=== PATIENT | male | born 2000 | race Caucasian/White ===

== ENCOUNTER 2024-08-28 19:49 | Emergency (ER) | payer BC ==
[2024-08-28 20:06] VITALS: TEMP 98.1; O2SAT 98
--- NOTE | 2024-08-28 21:09 | ERPHSYRPT ---
- History of Present Illness Source: patient Patient Subjective Stated Complaint: "I felt like I was about to pass out and next thing I know I woke up on the ground. My family thought I was shaking." Triage Nursing Assessment: Pt presents to ER with complaints of syncopal episode / possible seizure that occurred just [employer]. Pt arrived by EMS who state that pt went down to the ground and family on scene thought he may have been shaking or seizing. When EMS arrived pt was alert and oriented x 3. Rescue performed FSBS check and BGL was in the 60s, pt ate some food and EMS FSBS was in the 90s. Pt is alert and oriented x 3 upon ER arrival. Pt is awake and answering all questions appropriately. Denies loss of bladder or bowels. Pt remembers feeling as if he was going to "pass out" and then woke up on the ground. LOC was very brief. Pt skin is pink, warm, and dry. Respirations are easy. Pupils are PERRL. Denies any pain or injury. Physician History: Patient is brought in by EMS. He had a syncopal episode. He is had about 5 of them in his life. The last was 2 to 3 years ago. He was just sitting had a play and felt lightheaded and tingly he was out for about a minute. He was not postictal when he came to. There was some mild tremors whenever he was down. H e got a little bit sweaty and nauseous said his head felt hot. He is back to normal now. He was diagnosed with seizures in the past he says that they all feel like this and that he feels lightheaded before each 1. I do not think that he is having seizures. He is never been on any seizure medication. He did not have any palpitations chest pain shortness of breath or other neurological deficits or issues. Witnessed: unwitnessed Prior Episodes: multiple episodes today Allergies/Adverse Reactions: No Known Drug Allergies Allergy (Verified 08/28/24 20:09) Home Medications: No Reportable Medications [No Reported Medications] 08/28/24 [History] Hx Tetanus, Diphtheria Vaccination/Date Given: No Hx Influenza Vaccination/Date Given: No Hx Pneumococcal Vaccination/Date Given: No Immunizations Up to Date: No Travel Risk - International Travel Have you traveled outside of the country in past 3 weeks: No - Emerging Infectious Disease Are you exhibiting symptoms associated with any current EIDs: No - Past Medical History Pertinent Past Medical History: Yes Neurological History: Other ENT History: No Pertinent History Cardiac History: No Pertinent History Respiratory History: No Pertinent History Endocrine Medical History: No Pertinent History Musculoskeletal History: No Pertinent History GI Medical History: No Pertinent History History: No Pertinent History Psycho-Social History: No Pertinent History Male Reproductive Disorders: No Pertinent History Other Medical History: possible syncope vs seizures (2019 + 2024) - Past Surgical History Past Surgical History: No Neuro Surgical History: No Pertinent History Cardiac: No Pertinent History Respiratory: No Pertinent History Gastrointestinal: No Pertinent History Genitourinary: No Pertinent History Musculoskeletal: No Pertinent History Male Surgical History: No Pertinent History - Social History Smoking Status: Never smoker Exposure to second hand smoke: No Drug Use: none - Social Determinants of Health Will the patient participate in the screening: Yes Do you worry about a steady place to live?: No Do you have any problems with any of the following?: No known problems In the past 12 months,have you had to go without utilities?: No Transportation Issues: No Has anyone in your support network made you feel unsafe?: No Have you or anyone in your house had to go w/o enough food: No - Review of Systems Constitutional: No Symptoms Eyes: No Symptoms Respiratory: No Symptoms Cardiac: No Symptoms Neurological: No Symptoms All Other Systems: Reviewed and Negative Physical Exam - Nursing Vital Signs Nursing Vital Signs: Initial Vital Signs Temperature 98.1 F 08/28/24 19:50 Pulse Rate 95 H 08/28/24 19:50 Respiratory Rate 16 08/28/24 19:50 Blood Pressure 161/89 08/28/24 19:50 O2 Sat by Pulse Oximetry 98 08/28/24 19:50 Pain Scale Pain Intensity 0 - [place] Coma Scale Best Eye Response (Jero): (4) open spontaneously Best Verbal Response ([place]): (5) oriented Best Motor Response ([place]): (6) obeys commands Jero Total: 15 - Physical Exam General Appearance: no apparent distress Eye Exam: bilateral eye: normal inspection, PERRL, EOMI, abnormal EOM Ears, Nose, Throat Exam: normal ENT inspection Neck Exam: normal inspection Respiratory: normal breath sounds Cardiovascular: regular rate/rhythm, normal heart sounds 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, 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 Exam: normal hearing, normal speech, PERRL Coordination/Gait: normal finger to nose, normal gait Motor/Sensory: no motor deficit, no sensory deficit Skin Exam: normal color SpO2: 98 - Course EKG Interpreted by Me: RATE, NORMAL AXIS, NORMAL INTERVALS, NORMAL QRS Ordered Tests: Active Orders 24 hr Category Date Time Status EKG-ER Only STAT Care 08/28/24 20:39 Active CBC W DIFF Stat Lab 08/28/24 21:20 Completed CMP Stat Lab 08/28/24 21:20 Completed Lab/Rad Data: Laboratory Result Diagrams 08/28/24 21:20 08/28/24 21:20 Laboratory Results 08/28/24 08/28/24 Range/Units 21:20 21:20 WBC 13.2 H (4.23-9.07) x10^3/uL RBC 5.31 (4.63-6.08) x10^6/uL Hgb 15.7 (13.7-17.5) g/dL Hct 48.5 (40.1-51.0) % MCV 91.3 (79.0-92.2) fL MCH 29.6 (25.7-32.2) pg MCHC 32.4 (32.3-36.5) g/dL RDW 13.0 (11.6-14.4) % Plt Count 222 (163-337) x10^3/uL MPV 11.2 (9.4-12.4) fL Gran % 87.4 H (34.0-67.9) % Immature Gran % (Auto) 0.3 (0.001-0.429) % Nucleat RBC Rel Count 0.0 (0.00-0.2) % Eos # (Auto) 0.01 L (0.04-0.54) x10^3/uL Immature Gran # (Auto) 0.04 H (0.001-0.031) x10^3u/L Absolute Lymphs (auto) 0.89 L (1.32-3.57) x10^3/uL Absolute Monos (auto) 0.68 (0.30-0.82) x10^3/uL Absolute Nucleated RBC 0.00 (0.00-0.012) x10^3u/L Lymphocytes % 6.8 L (21.8-53.1) % Monocytes % 5.2 L (5.3-12.2) % Eosinophils % 0.1 L (0.8-7.0) % Basophils % 0.2 (0.2-1.2) % Absolute Granulocytes 11.51 H (1.78-5.38) x10^3/uL Basophils # 0.03 (0.01-0.08) x10^3/uL Sodium 142 (135-145) mmol/L Potassium 4.4 (3.5-5.1) mmol/L Chloride 103 (98-107) mmol/L Carbon Dioxide 27 (22-30) mmol/L Anion Gap 16.7 H (5-15) MEQ/L BUN 11 (9-20) mg/dL Creatinine 0.67 (0.66-1.25) mg/dL Estimated GFR 135.4 ML/MIN Glucose 117 H (74-106) mg/dL Calcium 9.0 (8.4-10.2) mg/dL Total Bilirubin 1.00 (0.2-1.3) mg/dL AST 27 (17-59) U/L ALT 21 (0-50) U/L Alkaline Phosphatase 90 (38-126) U/L Serum Total Protein 7.8 (6.3-8.2) g/dL Albumin 4.9 (3.5-5.0) g/dL - Progress Progress Note: Patient stable throughout stay. I think that he needs to have this evaluated by his primary doctor on an outpatient basis. His EKG showed no acute changes is interpreted by me. His electrolytes and labs all look normal.I advised him not to drive 08/28/24 21:12 08/28/24 21:13 Medical Desision Making - Independent Historian Additional History obtained from: Spouse - Diagnostic Testing Diagnostic test were ordered, analyzed, and reviewed by me: Yes - Risk of complications Minimal Risk: Minimal risk of morbidity - Departure Departure Disposition: Home Clinical Impression: Syncope Qualifiers: Syncope type: vasovagal syncope Qualified Code(s): R55 - Syncope and collapse Condition: Stable Critical Care Time: No Referrals: DOCTOR,NO FAMILY [Primary Care Provider] - Follow up/PCP as directed Instructions: Syncope (Fainting) (DC)
[2024-08-28 21:27] LABS: Absolute Neutrophil Ct (ANC) 11.51 x10^3/uL (1.78-5.38); BASOPHIL % 0.2 % (0.2-1.2); Basophil (Absolute #) 0.03 x10^3/uL (0.01-0.08); Eosinophil % 0.1 % (0.8-7.0); Eosinophil (Absolute #) 0.01 x10^3/uL (0.04-0.54); Hematocrit 48.5 % (40.1-51.0); Hemoglobin 15.7 g/dL (13.7-17.5); IMMATURE GRAN # 0.04 x10^3u/L (0.001-0.031); IMMATURE GRAN % 0.3 % (0.001-0.429); Lymphocyte (Absolute #) 0.89 x10^3/uL (1.32-3.57); Lymphocytes % 6.8 % (21.8-53.1); Mean Cell Volume 91.3 fL (79.0-92.2); Mean Corpuscular Hemoglobin 29.6 pg (25.7-32.2); Mean Corpuscular Hgb Concent. 32.4 g/dL (32.3-36.5); Mean Platelet Volume 11.2 fL (9.4-12.4); Monocyte (Absolute #) 0.68 x10^3/uL (0.30-0.82); Monocytes % 5.2 % (5.3-12.2); Neutrophil % 87.4 % (34.0-67.9); Platelet Count 222 x10^3/uL (163-337); Red Blood Count 5.31 x10^6/uL (4.63-6.08); White Blood Count 13.2 x10^3/uL (4.23-9.07)
[2024-08-28 21:43] LABS: ALBUMIN 4.9 g/dL (3.5-5.0); ANION GAP 16.7 MEQ/L (5-15); Creatinine 1 0.67 mg/dL (0.66-1.25); EST GLOMERULAR FILTRATION RATE 135.4 ML/MIN; Potassium 4.4 mmol/L (3.5-5.1); Total Protein 7.8 g/dL (6.3-8.2)
[2024-08-28 22:01] VITALS: BP 133/99; PULSE 77; RESP 25
== END 2024-08-28 22:00 | disposition home or self-care (01) ==
LOC: ED 19:49
DX: R55 Syncope and collapse (principal)
CPT/HCPCS: 36415; 80053; 85025; 93005; 99283; 99284